=== PATIENT | male | born 1945 | race Caucasian/White ===

== ENCOUNTER 2018-03-22 10:37 | Outpatient (CLI) | payer MEDICARE, OTHER ==
[~2018-03-22] VITALS: Ht 177.8 cm; Wt 84.1 kg
--- NOTE | ~2018-03-22 | HEMODYNAMI ---
PATIENT:SALVADOR ONEILL MEDICAL RECORD: [id number] : 41 LOCATION:[facility] ADMISSION DATE: 03/22/18 Generatedon:03/22/201814:08 Patient name: SALVADOR ONEILL Patient #: [id number] SSN: : 1945 Date of study: 03/22/2018 Page: Of Hemodynamic Procedure Report Patient Data Patient Demographics Procedure consent was obtained First Name: SALVADOR Gender: Male Last Name: NINO : 1945 Middle Initial: F Age: 73 year(s) Patient #: [id number] Race: Unknown Additional ID: [id number] Contact details Address: [address] [place] [address] State: [place] City: [facility] Zip code: [address] Admission Admission Data Admission Date: 03/22/2018 Admission Time: 10:37 Lab Results Lab Result Date: 03/22/2018 Lab Result Time: 0:00 Biochemistry Name Units Result Min Max BUN mg/dl 30 --(----)-* 7 18 Creatinine mg/dl 0.9 --(-*--)-- 0.6 1.3 CBC Name Units Result Min Max Hemoglobin g/dl 15 --(-*--)-- 13.5 17.5 Procedure Procedure Types Cath Procedure Diagnostic Procedure PPM/ICD PPM Dual Implant Procedure Description Procedure Date Procedure Date: 03/22/2018 Procedure Start Time: 13:35 Procedure End Time: 14:07 Procedure Staff Name Function Dl Ramey MD Performing Physician Manuel Benavides MD Assisting physician Jovanny Martinez RT Monitor Rochelle Bansal RT Scrub Devyn Duran RN Nurse Procedure Data Cath Procedure Fluoroscopy Diagnostic fluoroscopy Total fluoroscopy Time: 2.3 time: 2.3 min min Diagnostic fluoroscopy Total fluoroscopy dose: 78 dose: 78 mGy mGy Contrast Material Contrast Material Type Amount (ml) Isovue 300 0 Estimated blood loss: 5 ml Procedure Complications No complications Procedure Medications Medication Administration Route Dosage Oxygen etCO2 Nasal cannula 2 l/min Ancef (1Gm/50ml NS) I.V.P.B 1 g Ancef Irrigation Topical 1 g (1gm/500ml NS) 0.9% NaCl I.V. 100 ml/hr Fentanyl I.V. 50 mcg Versed I.V. 1 mg Fentanyl I.V. 50 mcg Versed I.V. 1 mg Fentanyl I.V. 50 mcg Fentanyl I.V. 50 mcg Hemodynamics Rest HGB: 15 (g/dl) Heart Rate: 59 (bpm) Snapshots Pre Cath Intra NCS Post Cath Vital Signs Time Heart Resp SPO2 etCO2 NIBP (mmHg) Rhythm Pain Sedation Rate (ipm) (%) (mmHg) Status Level (bpm) 13:20:58 63 18 98 0 172/89(137) NSR 0 (11) 10(A) , No pain 13:25:22 64 17 98 0 168/86(139) NSR 0 (11) 10(A) , No pain 13:29:41 61 15 97 0 140/90(121) NSR 0 (11) 10(A) , No pain 13:33:59 54 16 96 0 136/75(102) NSR 0 (11) 10(A) , No pain 13:37:56 59 16 94 0 127/97(119) NSR 0 (11) 10(A) , No pain 13:42:51 69 16 94 0 137/82(104) NSR 0 (11) 10(A) , No pain 13:47:01 57 16 95 0 143/89(123) NSR 0 (11) 10(A) , No pain 13:51:17 73 16 95 0 152/83(113) NSR 0 (11) 10(A) , No pain 13:55:37 71 16 96 0 147/78(118) NSR 0 (11) 10(A) , No pain 13:59:53 68 15 98 0 151/85(113) NSR 0 (11) 10(A) , No pain 14:05:39 68 17 96 0 143/88(120) NSR 0 (11) 10(A) , No pain Medications Time Medication Route Dose Verified Delivered Reason Notes Effective ness by by 13:25:38 Oxygen etCO2 2 Dl Shepard Per Nasal l/min Tanvir Duran RN physician cannula MD 13:25:48 Ancef I.V.P.B 1 g Dl Devyn Per (1Gm/50ml St Je Duran RN physician NS) 13:25:57 Ancef Topical 1 g Dl Devyn Per Irrigation St Je Duran RN physician (1gm/500ml NS) 13:26:06 0.9% NaCl I.V. 100 Dl Laney Per ml/hr [facility] Je Duran RN physician 13:35:02 Fentanyl I.V. 50 Dl Devyn for [facility] Duran RN sedation 13:35:09 Versed I.V. 1 mg Dl Devyn for [facility] Dur[facility] RN sedation 13:37:11 Fentanyl I.V. 50 Dl Devyn for [facility] Dur[facility] RN sedation 13:37:14 Versed I.V. 1 mg Dl Devyn for [facility] Dur[facility] RN sedation 13:38:30 Fentanyl I.V. 50 Dl Devyn for [facility] Dur[facility] RN sedation 13:42:22 Fentanyl I.V. 50 Dl Devyn for [facility] Dur[facility] RN sedation Procedure Log Time Note 12:45:37 Jovanny Martinez RT(R) sent for patient. Start room use. 12:51:05 Signed procedure consent form obtained from patient. 12:51:16 H&P Date Dictated: 03/09/2018 Within 30 days and on chart., H&P Addendum completed by physician on day of procedure. (MUST COMPLETE FOR ALL OUTPATIENTS). 12:51:40 Lab Result : Creatinine 0.9 mg/dl 12:51:40 Lab Result : BUN 30 mg/dl 12:51:40 Lab Result : Hemoglobin 15 g/dl 12:52:38 Time tracking: Regular hours (M-F 7:00 - 5:00) 12:52:42 Plan of Care:Hemodynamics will remain stable., Cardiac rhythm will remain stable., Comfort level will be maintained., Respiratory function will remain adequate., Patient/ family verbilizes understanding of procedure., Procedure tolerated without complication., Recovers from procedure without complications.. 12:59:31 Patient received from Pre/Post Procedure Room to [facility] 3 Alert and oriented. Tansferred to table in Supine position. 12:59:38 Warm blankets applied, and nan hugger turned on for patient comfort. 12:59:38 Correct patient and procedure confirmed by team. 12:59:40 ECG and BP/O2 sat monitors applied to patient. 13:19:45 Vital chart was started 13:19:56 Baseline sample Acquired. 13:20:04 Rhythm: sinus bradycardia 13:20:06 Full Disclosure recording started 13:20:07 Pre-procedure instructions explained to patient. 13:20:08 Pre-op teaching completed and patient verbalized understanding. 13:20:14 Family in patients room. 13:20:15 Patient NPO since Midnight. 13:20:16 Is the patient allergic to Iodine/contrast media? No. 13:20:18 Is patient on blood thinner?No 13:20:40 Patient diabetic? No. 13:20:44 Previous problem with sedation/anesthesia? No ? 13:20:45 Snore? No 13:20:46 Sleep apnea? No 13:20:47 Deviated septum? No 13:20:47 Opens mouth fully? Yes 13:20:48 Sticks out tongue? Yes 13:20:50 Airway obstruction? No ? 13:20:52 Dentures? No ? 13:21:01 Patient pain scale 0/10 ?. 13:21:27 IV patent on arrival in left forearm with 0.9% NaCl at [facility]. 13:21:29 Lab results completed and on chart. 13:21:33 Left chest area was prepped with chlora-prep and draped in sterile fashion 13:21:34 Alarms reviewed by R. N. 13:21:34 Sharps counted by scrub and verified by R.N. 13:21:50 Medtronic termite control service representative Inocencio Wynne present for procedure. 13:22:18 Pre sharps counted by scrub and verified by RN: Sutures: 7; Sponges: 5; Stick needles: 2; Skin needles: 2; Blade: 1; Cautery: 1 13:22:21 Grounding pad site Left thigh. 13:22:23 Grounding pad site free from injury. 13:22:31 Use device set PEMA PPM 13:22:35 Mepilex Dressing ([id number]) opened to sterile field. 13:22:36 Cautery Tip Audit Officer opened to sterile field. 13:22:37 Cautery Pushbutton Pencil opened to sterile field. 13:22:40 2-0 Ticron Multipack ([id number]) opened to sterile field. 13:22:40 3-0 Vicryl Single Pack [id number] opened to sterile field. 13:22:41 5-0 Monocryl PS2 [id number] opened to sterile field. 13:22:55 Medtronic 4574-45 PPM Lead opened to sterile field. 13:23:13 Medtronic Advisa MRI PPM Dual Generator [id number] opened to sterile field. 13:23:14 Medtronic 4074-52 PPM Lead opened to sterile field. 13:25:38 Oxygen 2 l/min etCO2 Nasal cannula was administered by Devyn Duran RN; Per physician; 13:25:48 Ancef (1Gm/50ml NS) 1 g I.V.P.B was administered by Devyn Duran RN; Per physician; 13:25:57 Ancef Irrigation (1gm/500ml NS) 1 g Topical was administered by Devyn Duran RN; Per physician; 13:26:06 0.9% NaCl 100 ml/hr I.V. was administered by Devyn Duran RN; Per physician; 13:31:33 --------ALL STOP TIME OUT------ 13:31:34 Final Timeout: patient, procedure, and site verified with staff and physician. All members of the team are in agreement. 13:31:38 Left chest site verified by team. 13:31:59 Physical assessment completed. ASA score P 2 - A patient with mild systemic disease as per Dl Ramey MD. 13:32:03 Sedation plan: IV Moderate Sedation Medication:Versed, Fentanyl 13:35:02 Fentanyl 50 mcg I.V. was administered by Devyn Duran RN; for sedation; 13:35:09 Versed 1 mg I.V. was administered by Devyn Duran RN; for sedation; 13:35:23 Procedure started. 13:35:39 Lidocaine 1% w/epi was administered to left subclavicular area by Manuel Benavides MD . 13:36:38 Incision made to left subclavicular area. 13:37:11 Fentanyl 50 mcg I.V. was administered by Devyn Duran RN; for sedation; 13:37:14 Versed 1 mg I.V. was administered by Devyn Duran RN; for sedation; 13:37:28 Generator pocket made/opened. 13:38:30 Fentanyl 50 mcg I.V. was administered by Devyn Duran RN; for sedation; 13:41:44 Left subclavian vein accessed with 7Fr Peel Away Sheath. 13:42:03 Left subclavian vein accessed with 7Fr Peel Away Sheath. 13:42:22 Fentanyl 50 mcg I.V. was administered by Devyn Duran RN; for sedation; 13:43:01 Ventricular lead inserted and advanced. 13:44:20 Peel-a-way sheath was split and removed. 13:44:53 Atrial lead inserted and advanced. 13:44:57 Peel-a-way sheath was split and removed. 13:45:06 Ventricular lead positioned. 13:45:39 Ventricular lead tested. 13:46:17 Atrial lead inserted and advanced. 13:46:21 Peel-a-way sheath was split and removed. 13:47:55 Atrial lead positioned. 13:47:59 Atrial lead tested. 13:49:13 Ventricular lead attachment was completed with 2-0 ticron. 13:49:36 Atrial lead attachment was completed with 2-0 ticron. 13:50:14 PPM Dual was attached to lead(s) and inserted into pocket. 13:51:43 Device pocket was irrigated with Ancef. 13:52:00 Generator was sutured in place with 2-0 ticron. 13:52:34 Parameters-- Generator: Mode: AAIR. Lower Rate: 60bpm. Upper Rate: 130bpm. 13:54:17 Parameters--Ventricular P/R Wave: 8.9mV. Current: 0.2mA; Threshold: 0.4V; Impedence: 1793OHMS. 13:54:51 Parameters--Atrial P/R Wave: 0.9 AFmV. Current: ?mA; Threshold: AFV; Impedence: 706OHMS. 13:55:02 Subcutaneous closure was completed with 5-0 monocryl. 13:57:39 Lt Chest incision was dressed with 4 x 4 and Tegaderm. 13:58:55 Immobilizer Large opened to sterile field. 14:01:32 Procedure ended.(Physican Out) 14:01:51 Fluoroscopy time 02.30 minutes. 14:: Fluoroscopy dose: 78 mGy 14:01:55 Flurop Dose total: 78 14:01:58 Contrast amount:Isovue 300 0ml. 14:02:03 Insertion/operative site no bleeding no hematoma. 14:02:42 Post-procedure physical assessment completed. ASA score P 2 - A patient with mild systemic disease as per Dl Ramey MD. 14:02:45 Post procedure rhythm: paced 14:02:50 Estimated blood loss: 5 ml 14:02:51 Post procedure instruction explained to patient.Patient verbalizes understanding. 14:02:52 Patient needs reinforcement of post procedure teaching. 14:03:04 Procedure and supply charges have been captured, reviewed, submitted and are correct. 14:03:07 Procedure Complication : No complications 14:03:37 Post sharps counted by scrub and verified by RN: Sutures: 7; Sponges: 5; Stick needles: 2; Skin needles: 2; Blade: 1; Cautery: 1 14:06:55 Vital chart was stopped 14:06:55 See physician's report for complete and final results. 14:06:59 Report given to PCU. 14:07:22 Patient transfered to PCU with Bed. 14:07:26 Procedure ended. 14:07:26 Full Disclosure recording stopped 14:07:45 End room use (Document Last) Device Usage Item Name Manufacture Quantity Catalog Hospital Part Current Minimal Lot# / Number Charge Number Stock Stock Serial# Code Mepilex Hazen 1 [id number] 323555 [id number] [id number] 5 [facility] ([id number]) Cautery Tip Microtek 1 [id number] 415572 114020 [id number] 5 Audit [employer] Cautery Microtek 1 [id number] 686849 34500 110774 5 [employer] Pencil 2-0 Ticron Ethicon 8 [id number] [id number] 20473 558022 5 Multipack ([id number]) 3-0 Vicryl Ethicon 1 [id number] 891626 769356 106153 5 Single Pack [id number] 5-0 Monocryl Ethicon 1 Y495G 423858 803647 504759 5 PS2 Y495G Medtronic Medtronic 1 4574-45 904776 108277 5 [id number] 4574-45 PPM EXP Lead 09-27-19 Medtronic Medtronic 1 [id number] 650239 950119 5 [id number] Advisa MRI EXP PPM Dual 05-19-19 Generator [id number] Medtronic Medtronic 1 40752 358352 928344 5 [id number] 40752 PPM EXP Lead 10-29-19 Immobilizer [place] [address] [id number] 371277 604344 659496 5 Large Health Signature Audit Lysite Stage Time Signature Unsigned Intra-Procedure 03/22/2018 Jovanny Martinez 2:08:16 PM RT(R) Signatures Monitor : Jovanny Martinez RT Signature : Date : Time : [address] [address]
--- NOTE | ~2018-03-22 | OP ---
PATIENT NAME: SALVADOR HYLTON MEDICAL RECORD: [id number] :41 LOCATION:D.CAT ADMISSION DATE: SURGEON: SIMONA MACIAS MD DATE OF OPERATION: 03/22/2018 PROCEDURE: Lead portion of permanent pacemaker placement. INDICATION: Sick sinus syndrome, PAF and pauses. SURGEON: Manuel Benavides MD DESCRIPTION OF PROCEDURE: After left subclavian was cannulated via modified Seldinger technique by Dr. Benavides, first under fluoroscopic guidance, I placed the RV lead in RV apex without difficulty. After adequate R waves and thresholds were obtained, then again under fluoroscopic guidance, I placed right atrial lead in right atrial appendage without difficulty. After adequate fibrillatory waves were obtained, the leads were attached to appropriate poles of the generator and the pocket was closed via Dr. Benavides. IMPRESSION: Successful lead portion of permanent pacemaker placement on Salvador Hylton. COMPLICATIONS: None. ESTIMATED BLOOD LOSS: Minimal. DISPOSITION: To the floor stable. TRANSINT:[id number] Voice Confirmation ID: [id number] DOCUMENT ID: [id number] SIMONA MACIAS MD at 0804 CC: [id number] DICTATION DATE: 03/22/18 1358 TENTER: 03/22/18 1453 DEP CLI 03/23/[address] [address]
[2018-03-22] MEDS ORDERED: GEMFIBROZIL600 MG PO (11:12)
[2018-03-22] MEDS ORDERED: COZAAR100 MG PO (11:12)
[2018-03-22] MEDS ORDERED: PLAVIX75 MG PO (11:12)
[2018-03-22] MEDS ORDERED: CELEXA20 MG PO (11:13)
[2018-03-22] MEDS ORDERED: ZIAC 10-6.25 MG1 TAB PO (11:13)
[2018-03-22 11:20] VITALS: BP 144/73; BMI 26.6
[2018-03-22 11:33] LABS: HEMATOCRIT 44.9 % (42.0-54.0); MCH 32.5 pg (26.0-34.0); MCHC 33.4 g/dL (31.0-37.0); MCV 97.2 fL (80.0-100.0); MEAN PLATELET VOLUME 9.7 fL (7.4-10.4); RBC 4.62 10x6/uL (4.20-6.10); RDW 12.8 % (11.5-14.5); WBC 7.3 10x3/uL (4.8-10.8)
[2018-03-22 11:45] LABS: APTT 29.1 SECONDS (22.8-39.4); INR 1.01 (0.85-1.17); PROTIME 12.9 SECONDS (11.6-15.0)
[2018-03-22 11:53] LABS: CALC OSMOLALITY 286 mosm/kg (275-300); CALCIUM 9.6 mg/dL (8.5-10.1); CARBON DIOXIDE 26.1 mmol/L (21.0-32.0); CHLORIDE - SERUM 105 mmol/L (98-107); CREATININE - SERUM 0.9 mg/dL (0.6-1.3); GLUCOSE 106 mg/dL (74-106); POTASSIUM - SERUM 4.6 mmol/L (3.5-5.1); SODIUM 141 mmol/L (136-145); UREA NITROGEN 30 mg/dL (7-18); eGFR NON AFRICAN AMERICAN 87 mL/min (90-120)
[2018-03-22 14:49] VITALS: BP 139/60; Ht 177.8 cm; Wt 84.1 kg
[2018-03-22 15:46] VITALS: BP 124/66
[2018-03-22 20:00] VITALS: BP 117/73
[2018-03-23 04:00] VITALS: BP 127/73
[2018-03-23 09:10] VITALS: BP 129/62
== END 2018-03-23 11:16 | disposition home or self-care (01) ==
LOC: D.CATH 10:37 → D.M2 14:27 → D.CATH 03-23 11:16
PROVIDERS: Internal Medicine Interventional Cardiology
DX: I49.5 Sick sinus syndrome (principal); I48.0 Paroxysmal atrial fibrillation; Z01.812 Encounter for preprocedural laboratory examination

== ENCOUNTER → 2019-05-08 08:42 | Outpatient (CLI) | payer MEDICARE, OTHER ==
[2018-03-22 14:49] VITALS: BMI 26.6
[~2019-05-08 08:42] MED LIST: CELEXA20 MG PO; COZAAR100 MG PO; GEMFIBROZIL600 MG PO; PLAVIX75 MG PO; ZIAC 10-6.25 MG1 TAB PO
--- NOTE | 2019-05-09 15:03 | EC ---
PATIENT:SALVADOR ONEILL DATE OF SERVICE: 05/08/19 SEX: M MEDICAL RECORD: [id number] DATE OF : 41 LOCATION:D[facility] AGE OF PATIENT: 74 ADMISSION DATE: 05/08/19 REFERRING PHYSICIAN: INTERPRETING PHYSICIAN: SIMONA MACIAS MD ECHOCARDIOGRAM REPORT ECHO CHARGES 4 ECHO COMPLETE Date: 05/08/19 CLINICAL DIAGNOSIS: CAD/ASSESS EF AND VALVES HX OF PACEMAKER/HTN ECHOCARDIOGRAPHIC MEASUREMENTS (adult normal given) AC root (d.<3.7cm) 3.3 cm LV Septum d (<1.2 cm> 1.4 cm Valve Excursion 2.0 cm LV Septum (systole) 1.5 cm Left Atria (s.<4.0cm> 5.0 cm LVPW d(<1.2cm) 1.4 cm RV (d.<2.3cm) 5.0 cm LVPW (sytole) 1.5 cm LV diastole(<5.6CM) 5.3 cm MV E-F(>70mm/sec) cm LV systole 3.9 cm LVOT Diameter 2.0 cm MV exc.(>10mm) 1.5 cm Est.ejection fraction (50-75%) % DOPPLER: LVIT cm/sec A 27.0 cm/sec E 96.0 cm/sec LA cm/sec RVSP 51 mmHg LVOT 90 cm/sec AOP1/2T m/s Asc. Ao 120 cm/sec RVOT 68 cm/sec RA cm/sec PA 123 cm/sec AV Gradient Peak 5.72 mmHg AV Mean 3.06 mmHg AV Area 2.4 cm MV Gradient Peak 5.14 mmHg MV Mean 1.62 mmHg MV Area cm COMMENTS: Moth Proofer: 2 KARLA ANDERSON Ear Muff Assembler: 3 Dr. Bhatt TAPE# PACS Pericardial Effusion N DATE OF SERVICE: Adequate 2D, color flow, spectral Doppler, and M-Mode. LVH is present. LV internal dimension is normal. Wall motion is normal. EF is greater than or equal to 55%. Aortic valve sclerosis without stenosis by Doppler interrogation. Left atrium is dilated at 5 cm. Mitral valve shows no prolapse. [id number] MR. Right-sided chambers grossly normal. Moderate TR. TRANSINT:[id number] Voice Confirmation ID: [id number] DOCUMENT ID: [id number] ECHOCARDIOGRAM REPORT [id number] SALVADOR ONEILL GREGORY A MD at 1503 CC: [id number] DICTATION DATE: 05/09/19 1309 LADLE PULLER: 05/09/19 1355 DEP CLI 05/08/19 [place] [id number] [place] [id number]
== END | disposition home or self-care (01) ==
LOC: D.HCCARDIO 08:42
PROVIDERS: ATTEND Internal Medicine Interventional Cardiology
DX: I25.10 Atherosclerotic heart disease of native coronary artery without angina pectoris (principal)

== ENCOUNTER → 2020-05-16 09:31 | Outpatient (CLI) | payer MEDICARE ==
[2018-03-22 14:49] VITALS: BMI 26.6
--- NOTE | ~2020-05-16 | EC ---
PATIENT:SALVADOR ONEILL DATE OF SERVICE: 05/16/20 SEX: M MEDICAL RECORD: [id number] DATE OF : 41 [facility]GE [facility]: 75 ADMISSION DATE: 05/16/20 REFERRING PHYSICIAN: INTERPRETING PHYSICIAN: SIMONA MACIAS MD ECHOCARDIOGRAM REPORT ECHO CHARGES 4 ECHO COMPLETE Date: 05/16/20 CLINICAL DIAGNOSIS: HX OF CAD/ PACEMAKER /HTN ASSESS EF / VALVES ECHOCARDIOGRAPHIC MEASUREMENTS (adult normal given) AC root (d.<3.7cm) 3.6 cm LV Septum d (<1.2 cm> 1.2 cm Valve Excursion 1.6 cm LV Septum (systole) 1.7 cm Left Atria (s.<4.0cm> 4.6 cm LVPW d(<1.2cm) 1.4 cm RV (d.<2.3cm) 5.4 cm LVPW (sytole) 1.7 cm LV diastole(<5.6CM) 5.6 cm MV E-F(>70mm/sec) cm LV systole 4.0 cm LVOT Diameter 2.1 cm MV exc.(>10mm) 1.8 cm Est.ejection fraction (50-75%) % DOPPLER: LVIT cm/sec A 88.0 cm/sec E 53.0 cm/sec LA cm/sec RVSP 45 mmHg LVOT 77 cm/sec AOP1/2T m/s Asc. Ao 89 cm/sec RVOT 58 cm/sec RA cm/sec PA 98 cm/sec AV Gradient Peak 3.16 mmHg AV Mean 1.61 mmHg AV Area 3.3 cm MV Gradient Peak 3.24 mmHg MV Mean 1.16 mmHg MV Area cm COMMENTS: Refuse Collector Supervisor: 2 KARLA ANDERSON Utilization Management Nurse: 3 Dr. Bhatt TAPE# PACS Pericardial Effusion N DATE OF SERVICE: Adequate 2D, color flow imaging, spectral Doppler, and M-Mode. No LVH. LV internal dimensions are upper limits of normal, 5.6 cm LV function is normal with normal wall motion, EF greater than 50%. Aortic valve is sclerotic. There is no evidence of stenosis by Doppler interrogation. The left atrium is dilated at 4.6 cm. Mitral valve shows no prolapse. Mild MR. Right-sided chambers are grossly normal. ECHOCARDIOGRAM REPORT [id number] SALVADOR ONEILL TRANSINT:[id number] Voice Confirmation ID: [id number] DOCUMENT ID: [id number] SIMONA MACIAS MD CC: [id number] DICTATION DATE: 05/20/20938 VACUUM TECHNICIAN: 05/20/202099 DEP CLI 05/16/20 [facility] [address] [place] [id number]
== END | disposition home or self-care (01) ==
LOC: D.HCCECHO 09:30
PROVIDERS: ATTEND Internal Medicine Interventional Cardiology
DX: I25.10 Atherosclerotic heart disease of native coronary artery without angina pectoris (principal)